=== PATIENT | male | born 1985 | race Two or more races ===

== ENCOUNTER 2019-10-10 18:42 | Emergency (ER) | payer SELFPAY ==
[~2019-10-10] VITALS: Ht 170.2 cm; Wt 113.4 kg
[2019-10-10 19:32] VITALS: BP 137/93
== END 2019-10-10 20:59 | disposition home or self-care (01) ==
LOC: ER 18:45
DX: M79.662 Pain in left lower leg (principal); M54.5 Low back pain; M25.522 Pain in left elbow; W11.XXXA Fall on and from ladder, initial encounter; Y93.89 Activity, other specified; Y92.89 Other specified places as the place of occurrence of the external cause; Y99.0 Civilian activity done for income or pay
CPT/HCPCS: 72100-TC; 73080-TC; 73590-TC